=== PATIENT | female | born 1995 | race Caucasian/White ===

== ENCOUNTER 2019-01-07 15:18 | Outpatient (CLI) | payer MEDICAID ==
[~2019-01-07] VITALS: Ht 142.2 cm; Wt 40.9 kg
[2019-01-07 15:24] VITALS: BP 107/62
[2019-01-07 15:59] LABS: CULTURE INDICATED? YES; MICROSCOPIC INDICATED
== END 2019-01-07 17:00 | disposition home or self-care (01) ==
LOC: LDOP 15:18
PROVIDERS: ATTEND Student in an Organized Health Care Education/Training Program
DX: O26.893 Other specified pregnancy related conditions, third trimester (principal); R10.9 Unspecified abdominal pain; Z3A.34 34 weeks gestation of pregnancy; Z91.018 Allergy to other foods
CPT/HCPCS: 59025; 81001; 87086; 99211; G0463

== ENCOUNTER 2019-01-21 17:09 | Outpatient (CLI) | payer MEDICAID ==
[~2019-01-21] VITALS: Ht 142.2 cm; Wt 40.9 kg
[2019-01-21 17:23] VITALS: BP 122/84
[2019-01-21] MEDS ORDERED: FLU VACC QS2019-20 36MOS UP/PF 0.5 ML IM ONE (17:30)
[2019-01-21] MEDS ORDERED: FLU VACC QS2019-20 36MOS UP/PF 0.5 ML IM-VACC ONE (18:30)
[2019-01-21] MEDS ORDERED: PREN1TAB60 PO (18:51)
== END 2019-01-21 19:19 | disposition home or self-care (01) ==
LOC: LDOP 17:09
PROVIDERS: ATTEND Student in an Organized Health Care Education/Training Program
DX: O26.893 Other specified pregnancy related conditions, third trimester (principal); Z3A.37 37 weeks gestation of pregnancy
CPT/HCPCS: 59025; 90686; 99211; G0463

== ENCOUNTER 2019-01-22 00:04 | Inpatient (IN) | payer MEDICAID ==
[~2019-01-22] VITALS: Ht 142.2 cm; Wt 41.4 kg
[~2019-01-22 00:04] MED LIST: PREN1TAB60 PO
[2019-01-22 00:19] VITALS: BP 112/78
[2019-01-22] MEDS ORDERED: D5%-LACTATED RINGERS 1,000 ML IV SCH (01:41)
[2019-01-22] MEDS ORDERED: OXYTOCIN 30U/ 0.9% NaCL 500ML 500 ML IV ONE (01:41)
[2019-01-22] MEDS ORDERED: OXYTOCIN 30U/ 0.9% NaCL 500ML 500 ML ONE ×2 (01:45→05:03)
[2019-01-22] MEDS ORDERED: NEWBORN KIT ONE (01:45)
[2019-01-22] MEDS ORDERED: TERBUTALINE 1 MG/ML, 1ML SQ PRN (02:00)
[2019-01-22] MEDS ORDERED: SODIUM CITRATE/CITRIC ACID 30 ML UDC PO PRN (02:00)
[2019-01-22] MEDS ORDERED: ONDANSETRON 2MG/ML, 2ML IVPush PRN (02:00)
[2019-01-22] MEDS ORDERED: METOCLOPRAMIDE 5 MG/ML, 2ML IVPush PRN (02:00)
[2019-01-22] MEDS ORDERED: TERBUTALINE 1 MG/ML, 1ML IVPush PRN (02:00)
[2019-01-22] MEDS ORDERED: CALCIUM CARBONATE 500 MG TAB.CHEW PO PRN (02:00)
[2019-01-22] MEDS ORDERED: FENTANYL PF 100 MCG/2ML IV PRN (02:00)
[2019-01-22] MEDS: LACTATED RINGERS 1,000 ML IV SCH ×2 (02:05→05:59)
[2019-01-22] MEDS ORDERED: FENTANYL PF 100 MCG/2ML ONE ×2 (02:17→03:49)
[2019-01-22] MEDS ORDERED: ONDANSETRON 2MG/ML, 2ML ONE (02:17)
[2019-01-22 02:22] LABS: BASOPHILS # (AUTO) 0.02 x10^3/uL (0-0.1); BASOPHILS % (AUTO) 0 % (0-1); EOSINOPHILS # (AUTO) 0.11 x10^3/uL (0-0.4); EOSINOPHILS % (AUTO) 1 % (1-7); LYMPHOCYTES % (AUTO) 11 % (22-44); MD NO; MEAN CORPUSCULAR HEMOGLOBIN 32.4 pg (27.0-34.8); MEAN CORPUSCULAR HGB CONC 33.3 g/dL (32.4-35.8); MEAN CORPUSCULAR VOLUME 97.3 fL (80-100); MEAN PLATELET VOLUME 9.7 fL (7.4-10.4); MONOCYTES # (AUTO) 0.42 x10^3/uL (0.2-0.8); MONOCYTES % (AUTO) 4 % (2-9); NEUTROPHILS # (AUTO) 9.35 x10^3/uL (1.8-6.8); NEUTROPHILS % (AUTO) 84 % (42-75); PLATELET COUNT 218 x10^3/uL (130-400); RED BLOOD COUNT 3.97 x10^6/uL (3.82-5.3); RED CELL DISTRIBUTION WIDTH 12.9 % (9.6-15.2)
[2019-01-22] MEDS: FENTANYL PF 100 MCG/2ML IVPush PRN ×2 (02:26→03:51)
[2019-01-22] MEDS ORDERED: METHYLERGONOVINE 0.2 MG/ML IM PRN (05:00)
[2019-01-22] MEDS ORDERED: ACETAMINOPHEN 325 MG TABLET PO PRN (05:00)
[2019-01-22] MEDS ORDERED: MISOPROSTOL 200 MCG TABLET PR PRN (05:00)
[2019-01-22] MEDS ORDERED: OXYcodone/APAP 5/325MG TABLET PO PRN (05:00)
[2019-01-22] MEDS ORDERED: CARBOPROST TROMETHAMINE 250 MCG/ML, 1ML IM PRN (05:00)
[2019-01-22] MEDS ORDERED: RHOGAM FROM BLOOD BANK 1 NOTE EA IM/IV ONE (05:00)
[2019-01-22] MEDS ORDERED: SIMETHICONE 80 MG CHEW TAB PO PRN (05:00)
[2019-01-22] MEDS ORDERED: DIPH,PERTUSS(ACELL),TET VAC/PF NC IM-VACC PRN (05:00)
[2019-01-22] MEDS ORDERED: IBUPROFEN 600 MG TABLET ONE (05:02)
[2019-01-22] MEDS ORDERED: OXYcodone/APAP 5/325MG TABLET ONE (05:02)
[2019-01-22] MEDS: OXYcodone/APAP 5/325MG TABLET PO PRN ×3 (05:05→23:19)
[2019-01-22] MEDS: IBUPROFEN 600 MG TABLET PO PRN ×3 (05:05→19:45)
[2019-01-22] MEDS: OXYTOCIN 30U/ 0.9% NaCL 500ML 500 ML IV SCH ×3 (05:59→19:36)
[2019-01-22 07:25] VITALS: BP 124/74
[2019-01-22] MEDS: PRENATAL VIT/IRON/FA 1 EACH TABLET PO SCH (09:00)
[2019-01-22 12:53] LABS: BASOPHILS # (AUTO) 0.03 x10^3/uL (0-0.1); BASOPHILS % (AUTO) 0 % (0-1); EOSINOPHILS # (AUTO) 0.14 x10^3/uL (0-0.4); EOSINOPHILS % (AUTO) 1 % (1-7); LYMPHOCYTES # (AUTO) 1.42 x10^3/uL (1-3.4); LYMPHOCYTES % (AUTO) 14 % (22-44); MD NO; MEAN CORPUSCULAR HEMOGLOBIN 32.5 pg (27.0-34.8); MEAN CORPUSCULAR HGB CONC 33.6 g/dL (32.4-35.8); MEAN CORPUSCULAR VOLUME 96.8 fL (80-100); MEAN PLATELET VOLUME 9.3 fL (7.4-10.4); MONOCYTES # (AUTO) 0.55 x10^3/uL (0.2-0.8); MONOCYTES % (AUTO) 5 % (2-9); NEUTROPHILS # (AUTO) 8.35 x10^3/uL (1.8-6.8); NEUTROPHILS % (AUTO) 80 % (42-75); PLATELET COUNT 193 x10^3/uL (130-400); RED CELL DISTRIBUTION WIDTH 12.9 % (9.6-15.2)
[2019-01-22 13:00] VITALS: BP 102/65
[2019-01-22 19:50] VITALS: BP 117/84
[2019-01-22] MEDS: DOCUSATE 100 MG CAPSULE PO PRN (23:20)
[2019-01-23 00:30] VITALS: BP 105/78
[2019-01-23 02:58] VITALS: BP 103/64
[2019-01-23 07:44] VITALS: BP 108/70
[2019-01-23] MEDS: DOCUSATE 100 MG CAPSULE PO PRN (10:10)
[2019-01-23] MEDS: IBUPROFEN 600 MG TABLET PO PRN ×2 (10:10→17:17)
[2019-01-23] MEDS: PRENATAL VIT/IRON/FA 1 EACH TABLET PO SCH (10:10)
[2019-01-23] MEDS ORDERED: IBUP-1222 PO (12:27)
[2019-01-23] MEDS: OXYcodone/APAP 5/325MG TABLET PO PRN (17:17)
== END 2019-01-23 19:09 | disposition home or self-care (01) | DRG 560 ==
LOC: LDOP 00:04 → LDIP 01:48 → 2NW 07:10
PROVIDERS: ADMIT Student in an Organized Health Care Education/Training Program; ATTEND Student in an Organized Health Care Education/Training Program
PROC: 10E0XZZ Delivery of Products of Conception, External Approach (ICD-10-PCS; principal; 2019-01-22)
PROC: 10907ZC Drainage of Amniotic Fluid, Therapeutic from Products of Conception, Via Natural or Artificial Opening (ICD-10-PCS; 2019-01-22)
DX: O80 Encounter for full-term uncomplicated delivery (principal); Z37.0 Single live birth; Z3A.37 37 weeks gestation of pregnancy
CPT/HCPCS: 36415; 85025; 86850; 86900; G0378; J3010; J2590; J7120

== ENCOUNTER 2019-01-25 07:18 | Emergency (ER) | payer MEDICAID ==
[~2019-01-25] VITALS: Ht 142.2 cm; Wt 37.1 kg
[~2019-01-25 07:18] MED LIST changes: +IBUP-1222 PO
[2019-01-25 07:20] VITALS: BP 117/76
--- NOTE | 2019-01-25 08:38 | NUR ---
PT 3 DAYS. BILATERAL BREASTS ARE ENGOURGED WITH MILK AND PT UNCOMFORTABLE. NO ERTYHEMA
[2019-01-25] MEDS ORDERED: ACETAMINOPHEN 325 MG TABLET ONE (10:42)
[2019-01-25] MEDS ORDERED: ACETAMINOPHEN 325 MG TABLET PO ONE (11:00)
--- NOTE | 2019-01-25 11:23 | NUR ---
PT RECEIVED TEACHING FROM NURSE
--- NOTE | 2019-01-25 12:07 | NUR ---
PAPER HANDLER: PT NOT IN ROOM TO RECIEVE D/C INSTRUCTIONS
== END 2019-01-25 12:08 | disposition home or self-care (01) ==
LOC: ED 10:50
DX: O90.89 Other complications of the puerperium, not elsewhere classified (principal); R07.89 Other chest pain; N64.4 Mastodynia
CPT/HCPCS: 99283

== ENCOUNTER 2019-04-28 13:11 | Emergency (ER) | payer MEDICAID ==
[~2019-04-28] VITALS: Ht 142.2 cm; Wt 33.2 kg
[2019-04-28] MEDS ORDERED: PLEASE ENTER HEIGHT AND WEIGHT MC SCH (14:00)
[2019-04-28] MEDS ORDERED: SODIUM CHLORIDE 0.9% 1,000ML IVBOLUS ONE (15:00)
--- NOTE | 2019-04-28 15:00 | NUR ---
PT TO ROOM PER PEDIS WITH SON. PT C/O "I JUST HAD A BABY, AND GOT THE NEXIONPLANT IN MY ARM. I HAD THIS BEFORE, AND I HAD NO PROBLEM. BUT THIS TIME, I STARTED MY PERIOD ON THE , AND IT HASN'T STOPPED. IT WILL START TO GET LIGHT AND I THINK IT IS GOING TO STOP, BUT THEN IT STARTS AGAIN. IT IS HEAVY AT TIMES, BUT I DON'T SOAK ANY PADS. I'M HAVING A LOT OF CRAMPING TO. I CURRENTLY DON'T HAVE AN OBGYN, SO I DIDN'T KNOW WHERE TO GO." ASSESSMENT WNL.
[2019-04-28 15:11] LABS: BASOPHILS # (AUTO) 0.04 x10^3/uL (0-0.1); BASOPHILS % (AUTO) 1 % (0-1); EOSINOPHILS # (AUTO) 0.09 x10^3/uL (0-0.4); EOSINOPHILS % (AUTO) 1 % (1-7); LYMPHOCYTES # (AUTO) 2.09 x10^3/uL (1-3.4); LYMPHOCYTES % (AUTO) 24 % (22-44); MD NO; MEAN CORPUSCULAR HEMOGLOBIN 31.7 pg (27.0-34.8); MEAN CORPUSCULAR HGB CONC 33.8 g/dL (32.4-35.8); MEAN PLATELET VOLUME 8.5 fL (7.4-10.4); MONOCYTES # (AUTO) 0.34 x10^3/uL (0.2-0.8); MONOCYTES % (AUTO) 4 % (2-9); NEUTROPHILS # (AUTO) 6.19 x10^3/uL (1.8-6.8); NEUTROPHILS % (AUTO) 71 % (42-75); PLATELET COUNT 353 x10^3/uL (130-400); RED BLOOD COUNT 4.71 x10^6/uL (3.82-5.3); RED CELL DISTRIBUTION WIDTH 12.8 % (9.6-15.2)
[2019-04-28 15:24] LABS: ALBUMIN 4.5 g/dL (3.4-5.0); ANION GAP 7 mmol/L (5-15); CALCIUM 9.3 mg/dL (8.5-10.1); CHLORIDE 112 mmol/L (98-107); CREATININE 0.69 mg/dL (0.55-1.02)
[2019-04-28] MEDS ORDERED: SODIUM CHLORIDE FLUSH 10ML SYR IVF ONE (16:00)
[2019-04-28 16:42] VITALS: BP 103/55
== END 2019-04-28 17:05 | disposition home or self-care (01) ==
LOC: ED 16:40
DX: N93.8 Other specified abnormal uterine and vaginal bleeding (principal); N92.1 Excessive and frequent menstruation with irregular cycle
CPT/HCPCS: 36415; 76830; 80048; 82040; 84703; 85025; 99284